=== PATIENT | male | born 1980 | race Caucasian/White ===

== ENCOUNTER 2018-12-14 20:32 | Emergency (ER) | payer OTHER ==
--- NOTE | ~2018-12-14 | EKG ---
[place], [place] ELECTROCARDIOGRAM REPORT NAME: BELEM DESIR UNIT #: [id number] ROOM: DOCTOR: EPIPHANY DRAFT REPORT BIRTHDATE: [birth year] [facility] Test Date: 2018-12-14 Test Time: 20:59:00 Pat Name: BELEM DESIR Department: Room: Gender: [place] Laborer: Linn [place]ón : 1980 Requested By: ARYAN SÁNCHEZ Order Number: [id number] Reading MD: Colin Patel Measurements Intervals [place] Rate: 85 P: 21 [place]: 178 QRS: 31 QRSD: 108 T: 34 QT: 369 QTc: 439 Interpretive Statements Sinus rhythm Probable left atrial enlargement Low voltage, precordial leads RSR' in V1 or V2, probably normal variant Electronically Signed On 12-17-2018 4:49:21 PDT by Colin Paetl CM:EKGRPT:ELECTROCARDIOGRAM REPORT 58 ARYAN MTZ DRAFT REPORT ARYAN SÁNCHEZ DO
[~2018-12-14 20:32] MED LIST: ACIPHEX20 MG PO; ADDERALL10 MG PO; ADDERALL20 MG PO; ADDERALL5 MG PO; ALDACTONE25 M1 PO; ATIVAN1 MG PO; AUGMENTIN 875875 MG PO; BACTRIM DS 8001 TA1 PO; CARAFATE1 G1 PO; CEPHALEXIN500 M1 PO; CIPROFLOXACIN500 MG PO; COLSALIDE IMPR0.6 MG PO; DELTASONE20 M1 PO; HYDROCODONE BIT1 T11 PO; LOMOTIL 0.025 M1 TA1 PO; MEDROL DOSEPAK4 MG PO; NORFLEX100 MG PO; ORASONE; PERCOCET 325 MG1 TA7 PO; PHENERGAN; PROAIR HFA8.5 GM INH; PROTONIX IV40 MG IV; PROTONIX TR40 MG PO; PROTONIX40 MG PO; PROZAC20 MG PO; PYRIDIUM200 M1 PO; STRATTERA60 MG PO; VICTOZA6 MG/ML PO; VICTOZA6 MG/ML SC; XANAX1 MG PO; ZITHROMAX250 MG PO; ZOFRAN ODT4 MG SL; ZYLOPRIM100 MG PO; Zofran4 MG PO
[2018-12-14 21:19] LABS: BASO % 0.2 % (0.0-1.0); EOS # 0.1 10*3/uL (0.0-0.4); EOS % 1.1 % (1.0-4.0); HEMATOCRIT 42.3 % (42.0-52.0); HEMOGLOBIN 13.7 g/dl (14.0-18.0); LYMPH % 22.7 % (27.0-41.0); MEAN CORPUSCULAR HGB 27.8 pg (27.0-31.0); MEAN CORPUSCULAR HGB CONC 32.4 g/dl (33.0-37.0); MEAN PLATELET VOLUME 10.1 fl (9.6-12.3); MONO # 0.6 10*3/uL (0.1-1.0); MONO % 6.4 % (3.0-9.0); NEUT # 6.1 10*3/uL (2.3-7.9); NEUT % 68.9 % (47.0-73.0); PLATELET COUNT AUTOMATED 303 10*3/uL (130-400); RED BLOOD COUNT 4.92 10*6/uL (4.50-5.90); RED CELL DISTRI WIDTH 13.2 % (0-14.5); WHITE BLOOD COUNT 8.9 10*3/uL (4.8-10.8)
[2018-12-14 21:39] LABS: BILIRUBIN NEGATIVE (NEGATIVE); BLOOD NEGATIVE (NEGATIVE); CLARITY CLEAR (CLEAR); COLOR YELLOW (YELLOW); GLUCOSE NEGATIVE (NEGATIVE); KETONE NEGATIVE (NEGATIVE); LEUKO ESTERASE NEGATIVE (NEGATIVE); NITRITE NEGATIVE (NEGATIVE); PH 5.5 (5.0-9.0); SPECIFIC GRAVITY 1.025 (1.005-1.030); UROBILINOGEN 0.2 E.U./dl (0.2-1.0)
[2018-12-14 21:44] LABS: ALBUMIN 3.4 gm/dl (3.1-4.5); ALKALINE PHOSPHATASE 81 U/L (45-117); BUN 21 mg/dl (7-24); CHLORIDE 110 mmol/L (98-107); LIPASE 136 U/L (73-393); SGOT/AST 28 IU/L (3-35); SGPT/ALT 30 U/L (12-78); SODIUM 143 mmol/L (136-145); TOTAL PROTEIN 7.1 gm/dL (6.4-8.2)
[2018-12-14 21:45] LABS: TROPONIN I < 0.015 ng/ml (<0.045)
[2018-12-14 21:46] LABS: POTASSIUM 4.8 mmol/L (3.5-5.1)
[2018-12-14 21:51] LABS: BACTERIA TRACE; WBC 0-2 wbc/hpf (0-5)
== END 2018-12-15 02:42 | disposition home or self-care (01) ==
LOC: ED 20:32
PROVIDERS: Student in an Organized Health Care Education/Training Program
DX: R10.9 Unspecified abdominal pain (principal); J45.909 Unspecified asthma, uncomplicated; K21.9 Gastro-esophageal reflux disease without esophagitis; M10.9 Gout, unspecified; E66.9 Obesity, unspecified; F98.8 Other specified behavioral and emotional disorders with onset usually occurring in childhood and adolescence; F17.200 Nicotine dependence, unspecified, uncomplicated; Z91.041 Radiographic dye allergy status; Z88.5 Allergy status to narcotic agent; Z98.890 Other specified postprocedural states; Z90.89 Acquired absence of other organs; Z88.6 Allergy status to analgesic agent; Z88.1 Allergy status to other antibiotic agents

== ENCOUNTER → 2020-10-05 | Outpatient (CLI) | payer OTHER | END | disposition home or self-care (01) | LOC: RAD 16:38 | PROVIDERS: ATTEND Internal Medicine | DX: Z02.1 Encounter for pre-employment examination (principal) ==

== ENCOUNTER 2023-07-21 13:50 | Emergency (ER) | payer BC ==
[~2023-07-21] VITALS: Ht 180.3 cm; Wt 158.8 kg
[2023-07-21] MEDS ORDERED: VENLAFAXINE HYD75 M3 PO (14:02)
[2023-07-21 15:09] LABS: BASO # 0.1 10*3/uL (0.0-0.1); BASO % 0.5 % (0.0-1.0); EOS # 0.3 10*3/uL (0.0-0.4); EOS % 2.4 % (1.0-4.0); HEMATOCRIT 43.3 % (42.0-52.0); LYMPH # 2.6 10*3/uL (1.3-4.4); LYMPH % 22.5 % (27.0-41.0); MEAN CELL VOLUME 85.1 fl (80.0-94.0); MEAN CORPUSCULAR HGB 27.9 pg (27.0-31.0); MEAN CORPUSCULAR HGB CONC 32.8 g/dl (33.0-37.0); MEAN PLATELET VOLUME 9.3 fl (9.6-12.3); MONO # 0.9 10*3/uL (0.1-1.0); MONO % 8.2 % (3.0-9.0); NEUT # 7.5 10*3/uL (2.3-7.9); NEUT % 65.9 % (47.0-73.0); PLATELET COUNT AUTOMATED 361 10*3/uL (130-400); RED BLOOD COUNT 5.09 10*6/uL (4.50-5.90); RED CELL DISTRI WIDTH 12.5 % (0-14.5); WHITE BLOOD COUNT 11.5 10*3/uL (4.8-10.8)
[2023-07-21 15:32] LABS: ALKALINE PHOSPHATASE 81 U/L (46-116); BUN 11 mg/dl (9-23); CHLORIDE 106 mmol/L (98-107); POTASSIUM 4.4 mmol/L (3.4-5.1); SGPT/ALT 31 U/L (5-49); TOTAL PROTEIN 7.7 gm/dL (6.0-8.0); URIC ACID 7.8 mg/dL (3.7-9.2)
[2023-07-21] MEDS ORDERED: NAPROSYN500 MG PO (16:43)
== END 2023-07-21 17:03 | disposition home or self-care (01) ==
LOC: ED 13:50
PROVIDERS: Family Medicine
DX: M77.8 Other enthesopathies, not elsewhere classified (principal); Z91.041 Radiographic dye allergy status; Z88.5 Allergy status to narcotic agent; Z88.8 Allergy status to other drugs, medicaments and biological substances; Z96.651 Presence of right artificial knee joint; Z90.89 Acquired absence of other organs; Z98.890 Other specified postprocedural states; Z87.442 Personal history of urinary calculi; F17.200 Nicotine dependence, unspecified, uncomplicated